=== PATIENT | female | born 1980 ===

== ENCOUNTER 2017-01-21 17:06 | Emergency (ER) | payer OTHER, SELFPAY ==
[2017-01-21 17:06] VITALS: BMI 23.3
[2017-01-21 17:24] VITALS: BP 106/73
--- NOTE | 2017-01-21 17:44 | ED PDOC ---
Arrival/HPI - General Chief Complaint: Back Pain Time Seen by Provider: 01/21/17 17:35 Historian: Patient - History of Present Illness Narrative History of Present Illness (Text): 01/21/17 18:12 This 36 yo female presents to this ED c/o upper back pain x 2 days. Denies trauma, sob, cough, cp, rash, fever, or abnormal gait. 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 PERC negative for PE Time/Duration: < week Context: Home, Work Past Medical History - Provider Review Nursing Documentation Reviewed: Yes - Infectious Disease Hx of Infectious Diseases: None - Tetanus Immunization Tetanus Immunization: Unknown - Cardiac Hx Cardiac Disorders: No - Pulmonary Hx Respiratory Disorders: No - Neurological Hx Neurological Disorder: No - HEENT Hx HEENT Disorder: No - Renal Hx Renal Disorder: No - Endocrine/Metabolic Hx Endocrine Disorders: No - Hematological/Oncological Hx Blood Disorders: No - Integumentary Hx Dermatological Disorder: No - Musculoskeletal/Rheumatological Hx Falls: No - Gastrointestinal Hx Gastrointestinal Disorders: No - Genitourinary/Gynecological Hx Genitourinary Disorders: Yes Other/Comment: Hpv - Psychiatric Hx Psychophysiologic Disorder: No Hx Substance Use: No - Surgical History Hx Section: Yes (x2) - Anesthesia Hx Anesthesia: Yes Hx Anesthesia Reactions: No Hx Malignant Hyperthermia: No Family/Social History - Physician Review Nursing Documentation Reviewed: Yes Family/Social History: No Known Family HX Smoking Status: Never Smoked Hx Alcohol Use: No Hx Substance Use: No Allergies/Home Meds Allergies/Adverse Reactions: Allergies Penicillins Allergy (Verified 01/21/17 17:21) RASH Sulfa (Sulfonamide Antibiotics) Allergy (Verified 01/21/17 17:21) RASH Review of Systems - Review of Systems Constitutional: Normal. absent: Fatigue, Weight Change, Fevers, Night Sweats Eyes: Normal ENT: Normal Respiratory: Normal Cardiovascular: Normal Gastrointestinal: Normal Genitourinary Female: Normal Musculoskeletal: Other (Left upper back pain) Skin: Normal Neurological: Normal Endocrine: Normal Hemo/Lymphatic: Normal Psychiatric: Normal Physical Exam Vital Signs Temp Pulse Resp BP Pulse Ox 01/21/17 19:24 98.5 F 80 16 98 01/21/17 17:23 98.8 F 79 17 106/73 100 Temperature: Afebrile Blood Pressure: Normal Pulse: Regular Respiratory Rate: Normal Appearance: Positive for: Well-Appearing, Non-Toxic, Comfortable Pain Distress: None Mental Status: Positive for: Alert and Oriented X 3 - Systems Exam Head: Present: Atraumatic, Normocephalic Pupils: Present: PERRL Extroacular Muscles: Present: EOMI Conjunctiva: Present: Normal Mouth: Present: Moist Mucous Membranes Neck: Present: Normal Range of Motion Respiratory/Chest: Present: Clear to Auscultation, Good Air Exchange, Tender to Palpation (Mild tenderness over left scapula area. Pain is 100 % reproducible.) . No: Respiratory Distress, Accessory Muscle Use, Decreased Breath Sounds, Rales, Retracting Cardiovascular: Present: Regular Rate and Rhythm, Normal S1, S2. No: Murmurs Abdomen: Present: Normal Bowel Sounds. No: Tenderness, Distention, Peritoneal Signs Back: Present: Normal Inspection Upper Extremity: Present: Normal Inspection. No: Cyanosis, Edema Lower Extremity: Present: Normal Inspection. No: Edema Neurological: Present: GCS=15, CN II-XII Intact, Speech Normal Skin: Present: Warm, Dry, Normal Color. No: Rashes Psychiatric: Present: Alert, Oriented x 3, Normal Insight, Normal Concentration Medical Decision Making ED Course and Treatment: 01/21/17 19:13 Re-evaluation. Patient feels better. Discussed results and plan with patient who expresses understanding. All questions answered and there is agreement with the plan to discharge home with instructions. Patient stable for discharge. Return if symptoms persist or worsen. Re-evaluation Time: 19:13 Reassessment Condition: Re-examined, Improved - RAD Interpretation Radiology Orders: 01/21/17 17:44 CHEST TWO VIEWS (PA/LAT) [RAD] Stat - Medication Orders Current Medication Orders: Discontinued Medications Naproxen (Anaprox Ds) 550 mg PO STAT STA Stop: 01/21/17 19:12 Last Admin: 01/21/17 19:23 Dose: 550 mg Disposition/Present on Arrival - Present on Arrival Any Indicators Present on Arrival: No History of DVT/PE: No History of Uncontrolled Diabetes: No Urinary Catheter: No History of Decub. Ulcer: No History Surgical Site Infection Following: None - Disposition Have Diagnosis and Disposition been Completed?: Yes Diagnosis: Upper back pain Disposition: HOME/ ROUTINE Disposition Time: 19:14 Patient Plan: Discharge Condition: GOOD Discharge Instructions (ExitCare): Back Pain (ED) Additional Instructions: Call private doctor for follow up visit in 1-2 days. Take medication as instructed with food. Return to emergency if pain worsen. Prescriptions: Famotidine [Pepcid] 40 mg PO DAILY #14 tablet Naproxen 500 mg PO BID PRN #14 tab PRN Reason: Pain, Severe (8-10) Referrals: Phoenix Ceron MD [Family Provider] - Follow up with primary
[2017-01-21] MEDS ORDERED: Naproxen 550 mg Tab PO STA (19:11)
[2017-01-21 19:25] VITALS: PULSE 80; RESP 16; TEMP 98.5; O2SAT 98
--- NOTE | 2017-01-22 08:21 | RAD ---
HISTORY: upper back pain COMPARISON: 04/19/2016 TECHNIQUE: Chest PA and lateral FINDINGS: LUNGS: No active pulmonary disease. PLEURA: No significant pleural effusion identified. No pneumothorax apparent. CARDIOVASCULAR: Normal. OSSEOUS STRUCTURES: No significant abnormalities. VISUALIZED UPPER ABDOMEN: Normal. OTHER FINDINGS: None. IMPRESSION: No active disease.
== END 2017-01-21 19:25 | disposition home or self-care (01) ==
LOC: ED 17:06
DX: M54.9 Dorsalgia, unspecified (principal)

== ENCOUNTER 2017-04-18 12:52 | Emergency (ER) | payer OTHER ==
[2017-04-18 12:59] VITALS: BMI 24.0
[2017-04-18 13:02] VITALS: TEMP 98.3
[2017-04-18] MEDS ORDERED: DiphenhydrAMINE 50 mg/ml Inj IVP STA (13:06)
[2017-04-18] MEDS ORDERED: Sodium Chloride 0.9% 1,000 ML IV STA (13:06)
--- NOTE | 2017-04-18 13:08 | ED PDOC ---
Arrival/HPI - General Chief Complaint: Headache Time Seen by Provider: 04/18/17 13:03 Historian: Patient - History of Present Illness Narrative History of Present Illness (Text): 04/18/17 13:04 36 y/o female, pmh including ovarian cyst/hyperlipidemia, penicillin and sulfa allergy, c/o headache with nausea x 4 days with no fall or trauma. Generalized headache, tightness sensation around the head, gradually onset, on and off, no neck stiffness, no change in vision, headache associated with nausea but no vomiting, no chest pain or shortness of breath, no palpitation, no night sweat, no other medical or psychological complaints. Past Medical History - Provider Review Nursing Documentation Reviewed: Yes - Infectious Disease Hx of Infectious Diseases: None - Tetanus Immunization Tetanus Immunization: Unknown - Cardiac Hx Cardiac Disorders: No - Pulmonary Hx Respiratory Disorders: No - Neurological Hx Migraine: Yes - HEENT Hx HEENT Disorder: No - Renal Hx Renal Disorder: No - Endocrine/Metabolic Hx Endocrine Disorders: No - Hematological/Oncological Hx Blood Disorders: No - Integumentary Hx Dermatological Disorder: No - Musculoskeletal/Rheumatological Hx Falls: No - Gastrointestinal Hx Gastrointestinal Disorders: No - Genitourinary/Gynecological Hx Genitourinary Disorders: Yes Other/Comment: Hpv - Psychiatric Hx Psychophysiologic Disorder: No Hx Substance Use: No - Surgical History Hx Section: Yes (x2) - Anesthesia Hx Anesthesia: Yes Hx Anesthesia Reactions: No Hx Malignant Hyperthermia: No Family/Social History - Physician Review Nursing Documentation Reviewed: Yes Family/Social History: Unknown Family HX Smoking Status: Never Smoked Hx Alcohol Use: No Hx Substance Use: No Allergies/Home Meds Allergies/Adverse Reactions: Allergies Penicillins Allergy (Verified 01/21/17 17:21) RASH Sulfa (Sulfonamide Antibiotics) Allergy (Verified 01/21/17 17:21) RASH Home Medications: Home Meds Medication Instructions Recorded Confirmed Simvastatin [Simvastatin] 1 tab PO DAILY 04/18/17 04/18/17 Review of Systems - Review of Systems Constitutional: absent: Fatigue, Fevers Eyes: absent: Vision Changes ENT: absent: Hearing Changes Respiratory: absent: SOB, Cough Cardiovascular: absent: Chest Pain Gastrointestinal: Nausea. absent: Abdominal Pain, Diarrhea, Vomiting Skin: absent: Rash, Pruritis Neurological: Headache. absent: Dizziness, Focal Weakness, Speech Changes Physical Exam Vital Signs Reviewed: Yes Vital Signs Temp Pulse Resp BP Pulse Ox 04/18/17 13:02 98.3 F 93 H 18 112/73 99 Temperature: Afebrile Blood Pressure: Normal Pulse: Regular Respiratory Rate: Normal Appearance: Positive for: Well-Appearing, Non-Toxic Pain Distress: Severe Mental Status: Positive for: Alert and Oriented X 3 - Systems Exam Head: Present: Atraumatic, Normocephalic, Other (no temporal artery tenderness or jaw claudication ) Pupils: Present: PERRL Extroacular Muscles: Present: EOMI Conjunctiva: Present: Normal Ears: Present: NORMAL TM, Normal Canal. No: Erythema Mouth: Present: Moist Mucous Membranes Neck: Present: Normal Range of Motion, Paraspinal Tenderness (+ttp on the rt. paraspinal muscle region but no midline tenderness or step off. ), Trachea Midline. No: Meningeal Signs, MIDLINE TENDERNESS Respiratory/Chest: Present: Clear to Auscultation, Good Air Exchange. No: Respiratory Distress, Accessory Muscle Use Cardiovascular: Present: Regular Rate and Rhythm, Normal S1, S2. No: Murmurs Abdomen: Present: Normal Bowel Sounds. No: Tenderness, Distention, Peritoneal Signs Back: Present: Normal Inspection Upper Extremity: Present: Normal Inspection. No: Cyanosis, Edema Lower Extremity: Present: Normal Inspection. No: Edema Neurological: Present: GCS=15, Speech Normal, Motor Func Grossly Intact, Gait Normal, Memory Normal, Other (no drift, no slurred speech) Skin: Present: Warm, Dry, Normal Color. No: Rashes Psychiatric: Present: Alert, Oriented x 3, Normal Insight, Normal Concentration Medical Decision Making ED Course and Treatment: 04/18/17 13:09 -IVF/benadryl/reglan/reglan (when CT head is negative) -CT head -observe and reassess 04/18/17 15:03 -CT head show no acute findings -Headache resolved, feeling much better, explained all radiology result with the patient. -Discharge home with naproxen, bed rest, stay hydraed, avoid over working or over stressing, follow up with your own pmd and neurologist within 2 days, return to the ER for any new or worsening signs or symptoms. - RAD Interpretation Radiology Orders: 04/18/17 13:06 HEAD W/O CONTRAST [CT] Stat Normal CT of the head Pulp Piler: Radiologist - Medication Orders Current Medication Orders: Ketorolac Tromethamine (Toradol) 30 mg IVP STAT STA Stop: 04/18/17 14:55 Discontinued Medications Diphenhydramine HCl (Benadryl) 50 mg IVP STAT STA Stop: 04/18/17 13:07 Last Admin: 04/18/17 13:36 Dose: 50 mg Sodium Chloride (Sodium Chloride 0.9%) 1,000 mls @ 999 mls/hr IV .Q1H1M STA Stop: 04/18/17 14:06 Last Admin: 04/18/17 13:36 Dose: 999 mls/hr Metoclopramide HCl (Reglan) 10 mg IVP STAT STA Stop: 04/18/17 13:07 Last Admin: 04/18/17 13:36 Dose: 10 mg - PA / NUTRITIONIST PUBLIC HEALTH / Resident Statement / has reviewed & agrees with the documentation as recorded. Disposition/Present on Arrival - Present on Arrival Any Indicators Present on Arrival: No History of DVT/PE: No History of Uncontrolled Diabetes: No Urinary Catheter: No History of Decub. Ulcer: No History Surgical Site Infection Following: None - Disposition Have Diagnosis and Disposition been Completed?: Yes Diagnosis: Tension headache Disposition: HOME/ ROUTINE Disposition Time: 15:03 Patient Plan: Discharge Condition: IMPROVED Additional Instructions: -Discharge home with naproxen, bed rest, stay hydraed, avoid over working or over stressing, follow up with your own pmd and neurologist within 2 days, return to the ER for any new or worsening signs or symptoms. Prescriptions: Naproxen 500 mg PO BID PRN #20 tab PRN Reason: Other Referrals: Phoenix Ceron MD [Primary Care Provider] - Follow up with primary Hero Cool MD [Staff Provider] - Follow up with primary Forms: [employer] (Hebrew), WORK NOTE
--- NOTE | 2017-04-18 14:48 | CT ---
PROCEDURE: CT HEAD WITHOUT CONTRAST. HISTORY: generalized headache x 4 days COMPARISON: None available. TECHNIQUE: Axial computed tomography images were obtained through the head/brain without intravenous contrast. Radiation dose: Total exam DLP = 734 mGy-cm. This CT exam was performed using one or more of the following dose reduction techniques: Automated exposure control, adjustment of the mA and/or kV according to patient size, and/or use of iterative reconstruction technique. FINDINGS: HEMORRHAGE: No intracranial hemorrhage. BRAIN: No mass effect or edema. No atrophy or chronic microvascular ischemic changes. VENTRICLES: Unremarkable. No hydrocephalus. CALVARIUM: Unremarkable. PARANASAL SINUSES: Unremarkable as visualized. No significant inflammatory changes. MASTOID AIR CELLS: Unremarkable as visualized. No inflammatory changes. OTHER FINDINGS: None. IMPRESSION: Normal CT of the Head.
[2017-04-18 14:55] VITALS: O2SAT 100
[2017-04-18 17:32] VITALS: BP 97/66; PULSE 80; RESP 18
== END 2017-04-18 17:00 | disposition home or self-care (01) ==
LOC: ED 12:52
DX: G44.209 Tension-type headache, unspecified, not intractable (principal)
CPT/HCPCS: 70450; 96374; 96375; 99285; J1200; J2765; J7040

== ENCOUNTER 2017-11-15 19:07 | Emergency (ER) | payer OTHER ==
[2017-11-15 19:07] VITALS: BMI 24.0
[2017-11-15 19:21] VITALS: TEMP 98.5
--- NOTE | 2017-11-15 19:44 | ED PDOC ---
Arrival/HPI - General Chief Complaint: Chest Pain Time Seen by Provider: 11/15/17 19:30 - History of Present Illness Narrative History of Present Illness (Text): 37 y/o F c PSHx C section, most recently 2 years ago, non smoker p/w palpitations and chest pain x 1 week. States she gets intermittent palpitations , after which she feels a nonradiating, sharp L parasternal chest pain and L upper thoracic back pain for about 2 hours. She states she does feel mildly short of breath. She denies fever, chills, nausea, vomiting, leg swelling, recent travel, recent injury. Past Medical History - Infectious Disease Hx of Infectious Diseases: None - Tetanus Immunization Tetanus Immunization: Unknown - Cardiac Hx Cardiac Disorders: No - Pulmonary Hx Respiratory Disorders: No - Neurological Hx Migraine: Yes - HEENT Hx HEENT Disorder: No - Renal Hx Renal Disorder: No - Endocrine/Metabolic Hx Endocrine Disorders: No - Hematological/Oncological Hx Blood Disorders: No - Integumentary Hx Dermatological Disorder: No - Musculoskeletal/Rheumatological Hx Falls: No - Gastrointestinal Hx Gastrointestinal Disorders: No - Genitourinary/Gynecological Hx Genitourinary Disorders: Yes Other/Comment: Hpv - Psychiatric Hx Psychophysiologic Disorder: No Hx Substance Use: No - Surgical History Hx Section: Yes (x2) - Anesthesia Hx Anesthesia: Yes Hx Anesthesia Reactions: No Hx Malignant Hyperthermia: No Family/Social History Family/Social History: No Known Family HX Smoking Status: Never Smoked Hx Alcohol Use: No Hx Substance Use: No Allergies/Home Meds Allergies/Adverse Reactions: Allergies Penicillins Allergy (Verified 11/15/17 19:21) RASH Sulfa (Sulfonamide Antibiotics) Allergy (Verified 11/15/17 19:21) RASH Home Medications: Home Meds Medication Instructions Recorded Confirmed Simvastatin [Simvastatin] 1 tab PO DAILY 04/18/17 11/15/17 Review of Systems - Physician Review All systems were reviewed & negative as marked: Yes - Review of Systems Constitutional: absent: Fevers Gastrointestinal: absent: Vomiting Physical Exam - Physical Exam Narrative Physical Exam (Text): Gen: NAD Head: NC Eyes: No scleral icterus ENT: MMM Neck: Supple Chest: No tenderness CV: Borderline tachycardia Lungs: CTA b/l Abd: Soft, NT Back: No CVA tenderness Extremities: No swelling or tenderness Skin: No rash Neuro: Alert, no focal deficit Vital Signs Temp Pulse Resp BP Pulse Ox 11/15/17 21:36 85 18 101/68 100 11/15/17 19:21 98.5 F 97 H 19 110/88 100 11/15/17 19:19 98.5 F 97 H 19 110/88 100 Medical Decision Making ED Course and Treatment: EKG NSR 89 bpm, no ST eelvations, normal axis. CXR no PTX, pleural effusion, rib fracture, consolidation as read by me. Patient in no distress, will discharge home, f/u primary care, return to ED for worsening breathing, pain, fever, or any other problem. - Lab Interpretations Lab Results: 11/15/17 19:50 11/15/17 19:50 Lab Results 11/15/17 19:50: Urine HCG, Qual Negative 11/15/17 19:50: Sodium 142, Potassium 4.0, Chloride 105, Carbon Dioxide 25, Anion Gap 16, BUN 8, Creatinine 0.6 L, Est GFR ( Amer) > 60, Est GFR (Non -Af Amer) > 60, Random Glucose 95, Calcium 10.2, Total Bilirubin 0.2, AST 21, ALT 21, Alkaline Phosphatase 69, Total Creatine Kinase 58, Troponin I < 0.01, Total Protein 8.7 H, Albumin 4.7, Globulin 3.9, Albumin/Globulin Ratio 1.2 11/15/17 19:50: D-Dimer, Quantitative < 200 11/15/17 19:50: WBC 10.0 D, RBC 4.24, Hgb 12.3, Hct 36.7, MCV 86.6, MCH 29.0, MCHC 33.5, RDW 12.9, Plt Count 317, MPV 9.8, Gran % 57.1, Lymph % (Auto) 36.7 H , [place] % (Auto) 5.5, Eos % (Auto) 0.4 L, Baso % (Auto) 0.3, Gran # 5.74, Lymph # (Auto) 3.7 H, [place] # (Auto) 0.6, Eos # (Auto) 0.0, Baso # (Auto) 0.03 - RAD Interpretation Radiology Orders: 11/15/17 19:39 CHEST TWO VIEWS (PA/LAT) [RAD] Stat Disposition/Present on Arrival - Present on Arrival Any Indicators Present on Arrival: No History of DVT/PE: No History of Uncontrolled Diabetes: No Urinary Catheter: No History of Decub. Ulcer: No History Surgical Site Infection Following: None - Disposition Have Diagnosis and Disposition been Completed?: Yes Diagnosis: Chest pain Disposition: HOME/ ROUTINE Disposition Time: 22:01 Patient Plan: Discharge Condition: STABLE Discharge Instructions (ExitCare): Chest Pain (ED) Referrals: Phoenix Ceron MD [Primary Care Provider] - Follow up with primary Forms: [facility] ([place])
[2017-11-15 20:05] LABS: BASO # 0.03 K/mm3 (0.0-2.0); BASO % 0.3 % (0.0-3.0); EOS % 0.4 % (1.5-5.0); GRAN # 5.74 (1.4-6.5); GRAN % 57.1 % (50.0-68.0); HEMOGLOBIN 12.3 g/dL (12.0-16.0); LYMPH # 3.7 (1.2-3.4); LYMPH % 36.7 % (22.0-35.0); MEAN CELL VOLUME 86.6 fl (80.0-105.0); MEAN CORPUSCULAR HGB CONC 33.5 g/dl (31.0-37.0); MEAN PLATELET VOLUME 9.8 fl (7.0-11.0); MONO # 0.6 (0.1-0.6); MONO % 5.5 % (1.0-6.0); RBC 4.24 10^6/uL (3.5-6.1); RED CELL DISTRIBUTION WIDTH 12.9 % (11.5-14.5)
[2017-11-15 20:14] LABS: ALB/GLOB RATIO 1.2 (1.1-1.8); ALBUMIN 4.7 g/dL (3.0-4.8); ALT/SGPT 21 U/L (7-56); AST/SGOT 21 U/L (14-36); BLOOD UREA NITROGEN 8 mg/dL (7-21); CALCIUM 10.2 mg/dL (8.4-10.5); GFR AFRICAN-AMERICAN > 60; GFR NON-AFRICAN AMERICAN > 60
[2017-11-15 20:26] LABS: TROPONIN I < 0.01 ng/mL
[2017-11-15 21:37] VITALS: RESP 18
[2017-11-15 22:36] VITALS: BP 94/60; PULSE 79; O2SAT 99
--- NOTE | 2017-11-16 08:35 | RAD ---
HISTORY: chest pain, palpitations COMPARISON: Comparison is made with 01/21/2017 TECHNIQUE: Chest PA and lateral FINDINGS: LUNGS: No active pulmonary disease. PLEURA: No significant pleural effusion identified. No pneumothorax apparent. CARDIOVASCULAR: Normal. OSSEOUS STRUCTURES: No significant abnormalities. VISUALIZED UPPER ABDOMEN: Normal. OTHER FINDINGS: None. IMPRESSION: No active disease.
--- NOTE | 2017-11-16 10:39 | CARD ---
APPROVED REPORT EKG Measurement Heart [id number] <Conclusion> Normal sinus rhythm Possible Left atrial enlargement Septal infarct, old NSSTW changes No change
== END 2017-11-15 22:35 | disposition home or self-care (01) ==
LOC: ED 19:07
DX: R07.9 Chest pain, unspecified (principal)

== ENCOUNTER 2018-01-26 10:16 | Emergency (ER) | payer OTHER ==
[2018-01-26 10:16] VITALS: BMI 24.0
[2018-01-26 10:33] VITALS: TEMP 98.7; O2SAT 99
[2018-01-26 10:57] LABS: PH,URINE 6.5 (4.7-8.0); URINE APPEARANCE CLEAR (CLEAR); URINE BILIRUBIN NEGATIVE (NEGATIVE); URINE BLOOD TRACE-INTACT (NEGATIVE); URINE COLOR YELLOW (YELLOW); URINE GLUCOSE (UA) NEGATIVE (NEGATIVE); URINE LEUKOCYTE ESTERASE NEGATIVE Leu/uL (NEGATIVE); URINE PROTEIN NEGATIVE mg/dL (<30 mg/dL); URINE UROBILINOGEN 0.2 E.U./dL (<1 E.U./dL)
[2018-01-26 11:00] LABS: HCG,QUALITATIVE URINE NEGATIVE (NEGATIVE)
[2018-01-26 11:04] LABS: URINE BACTERIA FEW (NEG); URINE RBC 0 - 2 /hpf (0-2); URINE WBC 0 - 2 /hpf (0-6)
[2018-01-26 11:17] VITALS: RESP 18
[2018-01-26] MEDS ORDERED: Morphine 4 mg/ml ISec ONE (11:28)
[2018-01-26] MEDS ORDERED: Sodium Chloride 0.9% 1,000 ML IV STA ×2 (11:36→11:38)
[2018-01-26] MEDS ORDERED: Morphine 4 mg/ml ISec IVP STA (11:37)
[2018-01-26 11:51] LABS: BASO # 0.02 K/mm3 (0.0-2.0); BASO % 0.3 % (0.0-3.0); EOS # 0.1 (0.0-0.7); EOS % 1.7 % (1.5-5.0); GRAN # 3.5 (1.4-6.5); GRAN % 54.4 % (50.0-68.0); HEMOGLOBIN 11.7 g/dL (12.0-16.0); LYMPH # 2.3 (1.2-3.4); LYMPH % 36.3 % (22.0-35.0); MEAN CELL VOLUME 86.1 fl (80.0-105.0); MEAN CORPUSCULAR HGB CONC 33.6 g/dl (31.0-37.0); MEAN PLATELET VOLUME 9.7 fl (7.0-11.0); MONO # 0.5 (0.1-0.6); MONO % 7.3 % (1.0-6.0); RBC 4.04 10^6/uL (3.5-6.1); RED CELL DISTRIBUTION WIDTH 13.1 % (11.5-14.5); WHITE BLOOD COUNT 6.4 10^3/ul (4.5-11.0)
[2018-01-26 11:52] LABS: INR 1.04 (0.93-1.08)
[2018-01-26 11:57] LABS: ALB/GLOB RATIO 1.3 (1.1-1.8); ALBUMIN 4.5 g/dL (3.0-4.8); ALT/SGPT 29 U/L (7-56); AST/SGOT 22 U/L (14-36); BLOOD UREA NITROGEN 13 mg/dL (7-21); CALCIUM 9.1 mg/dL (8.4-10.5); GFR AFRICAN-AMERICAN > 60; GFR NON-AFRICAN AMERICAN > 60; LIPASE 92 U/L (23-300)
--- NOTE | 2018-01-26 12:15 | ED PDOC ---
Arrival/HPI - General Chief Complaint: Abdominal Pain Time Seen by Provider: 01/26/18 11:05 Historian: Patient - History of Present Illness Narrative History of Present Illness (Text): 01/26/18 11:38 A 37 year old female, whose past medical history includes HPV, presents to the emergency department complaining of epigastric pain for 4 days. Patient reports symptom worsens when eating. Patient denies any other complaints at this time. Also, patient denies any family history of gallbladder disease or gallstones. No PMD Past Medical History - Provider Review Nursing Documentation Reviewed: Yes - Infectious Disease Hx of Infectious Diseases: None - Tetanus Immunization Tetanus Immunization: Unknown - Cardiac Hx Cardiac Disorders: No - Pulmonary Hx Respiratory Disorders: No - Neurological Hx Migraine: Yes - HEENT Hx HEENT Disorder: No - Renal Hx Renal Disorder: No - Endocrine/Metabolic Hx Endocrine Disorders: No - Hematological/Oncological Hx Blood Disorders: No - Integumentary Hx Dermatological Disorder: No - Musculoskeletal/Rheumatological Hx Falls: No - Gastrointestinal Hx Gastrointestinal Disorders: No - Genitourinary/Gynecological Hx Genitourinary Disorders: Yes Other/Comment: Hpv - Psychiatric Hx Psychophysiologic Disorder: No Hx Substance Use: No - Surgical History Hx Section: Yes (x2) - Anesthesia Hx Anesthesia: Yes Hx Anesthesia Reactions: No Hx Malignant Hyperthermia: No Family/Social History - Physician Review Nursing Documentation Reviewed: Yes Family/Social History: No Known Family HX Smoking Status: Never Smoked Hx Alcohol Use: No Hx Substance Use: No Allergies/Home Meds Allergies/Adverse Reactions: Allergies Penicillins Allergy (Verified 11/15/17 19:21) RASH Sulfa (Sulfonamide Antibiotics) Allergy (Verified 11/15/17 19:21) RASH Home Medications: Home Meds Medication Instructions Recorded Confirmed Simvastatin [Simvastatin] 1 tab PO DAILY 04/18/17 11/15/17 Review of Systems - Physician Review All systems were reviewed & negative as marked: Yes - Review of Systems Constitutional: absent: Fevers, Night Sweats Respiratory: absent: SOB, Cough Cardiovascular: absent: Chest Pain, Palpitations Gastrointestinal: Abdominal Pain (epigastric region). absent: Diarrhea, Nausea , Vomiting Neurological: absent: Headache, Dizziness Physical Exam Vital Signs Reviewed: Yes Vital Signs Temp Pulse Resp BP Pulse Ox 01/26/18 14:00 70 18 107/73 99 01/26/18 11:17 79 18 105/68 99 01/26/18 10:16 98.7 F 82 16 103/72 99 Temperature: Afebrile Blood Pressure: Normal Pulse: Regular Respiratory Rate: Normal Appearance: Positive for: Well-Appearing Pain Distress: None Mental Status: Positive for: Alert and Oriented X 3 - Systems Exam Respiratory/Chest: Present: Clear to Auscultation, Good Air Exchange. No: Respiratory Distress, Accessory Muscle Use Cardiovascular: Present: Regular Rate and Rhythm, Normal S1, S2. No: Murmurs Abdomen: Present: Tenderness (epigastric region), Other (positive Quinones's sign) . No: Peritoneal Signs Upper Extremity: Present: Normal Inspection. No: Cyanosis, Edema Lower Extremity: Present: Normal Inspection. No: Edema Neurological: Present: GCS=15, CN II-XII Intact, Speech Normal Skin: Present: Warm, Dry, Normal Color. No: Rashes Psychiatric: Present: Alert, Oriented x 3, Normal Insight, Normal Concentration Medical Decision Making ED Course and Treatment: 01/26/18 11:41 Impression: 37 year old female with epigastric pain. Physical exam shows tenderness to epigastric region and positive Quinones's sign. Plan: -- Abdominal Ultrasound -- Abd/Pelvis CT -- Labs -- Urinalysis -- Toradol -- Morphine -- Zofran -- IV Fluids -- Reassess and disposition Prior Visits: Notes and results from previous visits were reviewed. Patient was last seen in the emergency department on 11/15/2017 for palpitations and chest pain. Patient was discharged home. Progress Notes: 01/26/2018 12:37 Abdominal Ultrasound IMPRESSION: Increased hepatic echotexture likely due to fatty infiltration however other infiltrative hepatic cellular disease process not excluded. No evidence cholelithiasis. Dictator: Mirza Mars DO - Lab Interpretations Lab Results: 01/26/18 11:41 01/26/18 11:41 Lab Results 01/26/18 11:41: Sodium 146, Potassium 3.8, Chloride 106, Carbon Dioxide 27, Anion Gap 17, BUN 13, Creatinine 0.6 L, Est GFR ( Amer) > 60, Est GFR ( Non-Af Amer) > 60, Random Glucose 94, Calcium 9.1, Total Bilirubin 0.3, AST 22, ALT 29, Alkaline Phosphatase 59, Total Protein 8.0, Albumin 4.5, Globulin 3.5, Albumin/Globulin Ratio 1.3, Lipase 92 01/26/18 11:41: PT 12.0, INR 1.04 01/26/18 11:41: WBC 6.4 D, RBC 4.04, Hgb 11.7 L, Hct 34.8 L, MCV 86.1, MCH 29.0 , MCHC 33.6, RDW 13.1, Plt Count 325, MPV 9.7, Gran % 54.4, Lymph % (Auto) 36.3 H, [place] % (Auto) 7.3 H, Eos % (Auto) 1.7, Baso % (Auto) 0.3, Gran # 3.50, Lymph # (Auto) 2.3, [place] # (Auto) 0.5, Eos # (Auto) 0.1, Baso # (Auto) 0.02 01/26/18 10:50: Urine Color Yellow, Urine Appearance Clear, Urine pH 6.5, Ur Specific [place] <= 1.005, Urine Protein Negative, Urine Glucose (UA) Negative, Urine Ketones Negative, Urine Blood Trace-intact H, Urine Nitrate Negative, Urine Bilirubin Negative, Urine Urobilinogen 0.2, Ur Leukocyte Esterase Negative , Urine RBC 0 - 2, Urine WBC 0 - 2, Ur Epithelial Cells 1 - 3, Urine Bacteria Few, Urine HCG, Qual Negative I have reviewed the lab results: Yes - RAD Interpretation Radiology Orders: 01/26/18 11:35 ABDOMEN COMPLETE [US] Stat 01/26/18 13:07 ABD PELVIS PO & IV CONTRAST [CT] Stat - Medication Orders Current Medication Orders: Discontinued Medications Sodium Chloride (Sodium Chloride 0.9%) 1,000 mls @ 999 mls/hr IV .Q1H1M STA Stop: 01/26/18 12:36 Last Admin: 01/26/18 12:53 Dose: 999 mls/hr eMAR Start Stop Document 01/26/18 12:53 SRE (Rec: 01/26/18 12:53 SRE [id number]) Intravenous Solution Start Date 01/26/18 Start Time 12:00 End Date 01/26/18 End time 13:00 Total Infusion Time 60 Sodium Chloride (Sodium Chloride 0.9%) 1,000 mls @ 999 mls/hr IV .Q1H1M STA Stop: 01/26/18 12:38 Last Admin: 01/26/18 12:52 Dose: 999 mls/hr eMAR Start Stop Document 01/26/18 12:52 SRE (Rec: 01/26/18 12:52 SRE [id number]) Intravenous Solution Start Date 01/26/18 Start Time 11:40 End Date 01/26/18 End time 12:40 Total Infusion Time 60 Ketorolac Tromethamine (Toradol) 30 mg IVP STAT STA Stop: 01/26/18 11:40 Last Admin: 01/26/18 12:49 Dose: 30 mg MAR Pain Assessment Document 01/26/18 12:49 SRE (Rec: 01/26/18 12:50 SRE [id number]) Pain Reassessment Is this a pain reassessment? Yes Sleep Is patient sleeping during reassessment? No Presence of Pain Presence of Pain Yes Location Pain Location Body Site Abdomen IVP Administration Document 01/26/18 12:49 SRE (Rec: 01/26/18 12:50 SRE [id number]) Charges for Administration # of IVP Administrations 1 Morphine Sulfate (Morphine) 4 mg IVP STAT STA Stop: 01/26/18 11:38 Last Admin: 01/26/18 11:40 Dose: Ondansetron HCl (Zofran Inj) 4 mg IVP STAT STA Stop: 01/26/18 11:39 Last Admin: 01/26/18 11:40 Dose: - Scribe Statement The provider has reviewed the documentation as recorded by the Heidi Babin Provider Scribe Attestation: All medical record entries made by the [employer] were at my direction and personally dictated by me. I have reviewed the chart and agree that the record accurately reflects my personal performance of the history, physical exam, medical decision making, and the department course for this patient. I have also personally directed, reviewed, and agree with the discharge instructions and disposition. Disposition/Present on Arrival - Present on Arrival Any Indicators Present on Arrival: No History of DVT/PE: No History of Uncontrolled Diabetes: No Urinary Catheter: No History of Decub. Ulcer: No History Surgical Site Infection Following: None - Disposition Have Diagnosis and Disposition been Completed?: Yes Diagnosis: Abdominal pain, Right ovarian cyst Disposition: HOME/ ROUTINE Disposition Time: 16:09 Patient Plan: Discharge Condition: GOOD Discharge Instructions (ExitCare): Acute Abdomen (Belly Pain), Adult (DC), Ovarian Cyst (DC) Additional Instructions: Pepcid is for discomfort - Twice a day Zofran ODT is for nausea - Three times a day Follow up with both Gynecology and Gastroenterology Both. Return to us if worse or new symptoms occur. Best- Dr. Samuel Price Referrals: Ancelmo Mckeon MD [Medical Doctor] - Follow up with primary Charisse Mckeon MD [Staff Provider] - Follow up with primary Forms: [id number] [address] [employer] ([place])
--- NOTE | 2018-01-26 12:39 | US ---
HISTORY: Biliary colic COMPARISON: No prior study available comparison TECHNIQUE: Sonographic evaluation of the abdomen. FINDINGS: LIVER: Measures 14 cm cm. Liver demonstrates smooth contour however increased echogenicity likely related to fatty infiltration however other infiltrative hepatic cellular disease process not excluded. . No obvious masses or collections seen on images presented. . No significant intrahepatic bile duct dilatation. GALLBLADDER: Unremarkable. No gallstones. No pericholecystic fluid collections or sonographic Quinones sign COMMON BILE DUCT: Measures 2.4 mm. No stones. No dilatation. PANCREAS: Unremarkable as visualized. No mass. No ductal dilatation. RIGHT KIDNEY: Measures 12.2 x 3.7 x 5.3cm. Normal echogenicity. No calculus, mass, or hydronephrosis. LEFT KIDNEY: Measures 11.3 x 5.0 x 5.1cm. Normal echogenicity. No calculus, mass, or hydronephrosis. SPLEEN: Normal in size and contour. No mass. AORTA: No aneurysmal dilatation. IVC: Unremarkable. OTHER FINDINGS: None. IMPRESSION: Increased hepatic echotexture likely due to fatty infiltration however other infiltrative hepatic cellular disease process not excluded. No evidence cholelithiasis.
[2018-01-26] MEDS ORDERED: Iohexol 240 (50 ml) ONE (13:12)
[2018-01-26] MEDS ORDERED: Iohexol 350 MG/100 ML VIAL ONE (14:20)
--- NOTE | 2018-01-26 15:46 | CT ---
PROCEDURE: CT abdomen pelvis dated 01/26/2018 HISTORY: Epigastric pain COMPARISON: The Comparison made with CT scan abdomen pelvis 09/03/2016. Correlation also made with concurrent abdominal ultrasound. . TECHNIQUE: Contiguous axial images of the abdomen and pelvis. Oral contrast was administered. No IV contrast given. Coronal and Sagittal reformats generated. This CT exam was performed using one or more of the following dose reduction techniques: Automated exposure control, adjustment of the mA and/or kV according to patient size, and/or use of iterative reconstruction technique. Contrast dose: 100 cc Omnipaque 350 Radiation dose: Total exam DLP = 300.39 mGy-cm. The the FINDINGS: LOWER THORAX: Minor passive/dependent type atelectasis both posterior sulci. No evidence of focal consolidation effusion or basilar pneumothorax. Few tiny noncalcified nodules both lung bases. There is a small hiatal hernia. LIVER: Liver demonstrates normal size. No obvious hepatic mass collection or calcification. Portal and splenic veins are opacified. The GALLBLADDER AND BILE DUCTS: Gallbladder physiologically distended. No evidence of intraluminal gallbladder calculi. PANCREAS: Pancreas appears grossly unremarkable without masses collections or calcifications. No significant pancreatic ductal dilatation. SPLEEN: Spleen exhibits normal size and attenuation pattern. ADRENALS: No adrenal lesions. KIDNEYS AND URETERS: Kidneys demonstrate symmetric nephrograms. No evidence of nephrolithiasis or hydronephrosis. BLADDER: Urinary bladder incompletely distended which may in part account for thick-walled appearance. Correlation with urinalysis recommended to exclude the possibility of a cystitis. . REPRODUCTIVE: There is a relatively large right adnexal cyst that measures approximately 3.7 x 3.1 cm. APPENDIX: Normal-appearing appendix of best seen on axial image number [id number]. No periappendiceal inflammatory changes. The the the BOWEL: Evaluation of the bowel is slightly limited due to incomplete opacification. The stomach is unopacified and incompletely distended which in part accounts for thick-walled appearance. . Visualized loops of small bowel exhibit normal contour and caliber. No evidence of acute mechanical small bowel obstruction. There is a small umbilical hernia that contains mesenteric fat and unobstructed loops of small bowel. No evidence of acute mechanical small bowel obstruction with oral contrast material seen extending into the colon to the level of the proximal transverse colon. Moderate amount of stool seen throughout the cecum ascending transverse and proximal - mid descending colon consistent with fecal retention/ constipation. PERITONEUM: Unremarkable. No fluid collection. No free air. LYMPH NODES: Unremarkable. No enlarged lymph nodes. VASCULATURE: Unremarkable. No aortic aneurysm. BONES: No fracture or destructive lesion. OTHER FINDINGS: None. IMPRESSION: There is a moderately large right adnexal cyst. Small umbilical hernia again noted which contains mesenteric fat and a loop of unobstructed small bowel. Few tiny noncalcified nodules both lung bases
[2018-01-26 16:14] VITALS: BP 109/75; PULSE 68
== END 2018-01-26 16:28 | disposition home or self-care (01) ==
LOC: ED 10:16
DX: N83.201 Unspecified ovarian cyst, right side (principal); R10.13 Epigastric pain
CPT/HCPCS: 74177; 76700; 80053; 81001; 81025; 83690; 84703; 85025; 85610; 96361; 96374; 99285; J1885; J2270; J2405; J7040; Q9966; Q9967